=== PATIENT | female | born 2000 ===

== ENCOUNTER 2021-08-03 05:00 | Day surgery (SDC) | payer OTHER ==
[~2021-08-03] VITALS: Ht 157.5 cm; Wt 104.3 kg
== END 2021-08-03 10:15 | disposition home or self-care (01) ==
LOC: CIR.AMB 05:00
PROVIDERS: ATTEND Specialist
DX: L72.0 Epidermal cyst (principal); J45.909 Unspecified asthma, uncomplicated; E66.01 Morbid (severe) obesity due to excess calories